=== PATIENT | female | born 1950 | race Caucasian/White ===

== ENCOUNTER 2018-03-26 19:20 | Emergency (ER) | payer OTHER ==
[~2018-03-26] VITALS: Ht 160 cm; Wt 90.3 kg
[2018-03-26 19:28] VITALS: Ht 160 cm; Wt 90.3 kg
[2018-03-26 20:46] LABS: BASOPHIL % 1.3 % (0-2); PLATELET COUNT 228 x10^3mcL (130-400)
[2018-03-26 20:50] LABS: RED CELL DISTRIBUTION WIDTH 15.3 % (11.5-14.5)
[2018-03-26 21:09] LABS: ALBUMIN 3.9 g/dL (3.4-5.0); ALKALINE PHOSPHATASE 58 U/L (46-116); ALT/SGPT 25 U/L (14-59); AST/SGOT 20 U/L (15-37); BILIRUBIN TOTAL 0.3 mg/dL (0.20-1.00); CARBON DIOXIDE 26.4 mmol/L (21-32); CHLORIDE SERUM 104 mmol/L (98-107); CREATININE SERUM 0.7 mg/dL (0.6-1.0); GFR1 > 60 mL/min; GLUCOSE SERUM 175 mg/dL (74-106); LIPASE 140 IU/L (73-393); POTASSIUM SERUM 3.4 mmol/L (3.5-5.1); SODIUM SERUM 140 mmol/L (136-145); TOTAL PROTEIN, SERUM 7.4 g/dL (6.4-8.2)
[2018-03-26 21:18] LABS: CALCIUM 9.3 mg/dL (8.5-10.1)
[2018-03-26 22:11] LABS: microscopic required? NO
[2018-03-26 22:36] LABS: urine erythrocyte NEGATIVE (NEGATIVE)
[2018-03-26 23:18] VITALS: BP 150/75
== END 2018-03-26 23:18 | disposition home or self-care (01) ==
LOC: ED 19:20
PROVIDERS: Emergency Medicine
DX: K57.92 Diverticulitis of intestine, part unspecified, without perforation or abscess without bleeding (principal); R73.9 Hyperglycemia, unspecified; I10 Essential (primary) hypertension; E78.00 Pure hypercholesterolemia, unspecified; Z88.2 Allergy status to sulfonamides
CPT/HCPCS: 36415; J7030

== ENCOUNTER 2018-04-01 23:44 | Emergency (ER) | payer OTHER ==
[~2018-04-01] VITALS: Ht 160 cm; Wt 89.6 kg
[2018-04-01 23:59] VITALS: Ht 160 cm; Wt 89.6 kg
[2018-04-02 01:38] LABS: BASOPHIL % 0.9 % (0-2); PLATELET COUNT 331 x10^3mcL (130-400); RED CELL DISTRIBUTION WIDTH 14.3 % (11.5-14.5)
[2018-04-02 01:56] LABS: CALCIUM 9.2 mg/dL (8.5-10.1); CARBON DIOXIDE 23.8 mmol/L (21-32); CHLORIDE SERUM 108 mmol/L (98-107); CREATININE SERUM 0.8 mg/dL (0.6-1.0); GFR1 > 60 mL/min; GLUCOSE SERUM 158 mg/dL (74-106); POTASSIUM SERUM 3.4 mmol/L (3.5-5.1); SODIUM SERUM 142 mmol/L (136-145)
[2018-04-02 02:01] LABS: ALBUMIN 3.7 g/dL (3.4-5.0); ALKALINE PHOSPHATASE 52 U/L (46-116); ALT/SGPT 29 U/L (14-59); AST/SGOT 18 U/L (15-37); BILIRUBIN TOTAL 0.16 mg/dL (0.20-1.00); TOTAL PROTEIN, SERUM 7.1 g/dL (6.4-8.2)
[2018-04-02 02:18] VITALS: BP 141/95
== END 2018-04-02 02:18 | disposition home or self-care (01) ==
LOC: ED 23:44
PROVIDERS: Emergency Medicine
DX: M54.2 Cervicalgia (principal); R51 Headache; R11.0 Nausea; I10 Essential (primary) hypertension; E78.00 Pure hypercholesterolemia, unspecified; Z88.2 Allergy status to sulfonamides
CPT/HCPCS: 36415; J1885

== ENCOUNTER 2019-04-17 20:15 | Emergency (ER) | payer OTHER ==
[~2019-04-17] VITALS: Ht 160 cm; Wt 90.7 kg
[2019-04-17 20:44] VITALS: Ht 160 cm; Wt 90.7 kg
[2019-04-17 23:14] VITALS: BP 134/76
== END 2019-04-17 23:14 | disposition home or self-care (01) ==
LOC: ED 20:15
DX: M75.92 Shoulder lesion, unspecified, left shoulder (principal); I10 Essential (primary) hypertension; E78.00 Pure hypercholesterolemia, unspecified; Z88.2 Allergy status to sulfonamides; Z87.442 Personal history of urinary calculi
CPT/HCPCS: J1885